=== PATIENT | male | born 1990 | race Caucasian/White ===

== ENCOUNTER 2021-03-24 11:00 | Emergency (ER) | payer OTHER ==
[~2021-03-24] VITALS: Ht 188 cm; Wt 83.9 kg
[2021-03-24 15:17] VITALS: BP 130/90
--- NOTE | 2021-03-25 10:35 | EKG ---
[place] [address] ELECTROCARDIOGRAM REPORT Name: DESIRE FRANCISCO Room: [facility]#: [id number] Admission: 03/24/21 Attend Phys: Discharge: 03/24/21 Date of : 88 Date of Service: 03/24/21 [facility] Report #: [id number] THIS REPORT FOR: //name// [facility] ED Test Date: 2021-03-24 Test Time: 12:57:28 Pat Name: DESIRE FRANCISCO Department: Room: Gender: [employer] Superintendent: MCKAY : 1990 Requested By: Kevin Vora Order Number: [id number] MD: Anish Herrera Measurements Intervals [place] Rate: 59 P: 61 MN: 173 QRS: -42 QRSD: 104 T: 58 QT: 435 QTc: 431 Interpretive Statements Sinus rhythm Left axis deviation Baseline wander in lead(s) I,III,aVR,aVL,V1,V2,V3 No previous ECG available for comparison Electronically Signed On 03-25-2021 10:35:49 [employer] by Anish Herrera [email or web address] <ELECTRONICALLY SIGNED> By: Rohan Herrera MD, [facility] 03/25/21 1035 [id number] Rohan Herrera MD, [facility] /EPI
== END 2021-03-24 15:18 | disposition home or self-care (01) ==
LOC: M.ERS 11:00
DX: F41.0 Panic disorder [episodic paroxysmal anxiety] (principal); Z91.02 Food additives allergy status; Z91.018 Allergy to other foods